=== PATIENT | female | born 1975 | race Caucasian/White ===

== ENCOUNTER 2016-06-27 12:01 | Emergency (ER) | payer OTHER ==
[~2016-06-27] VITALS: Ht 157.4 cm; Wt 64.9 kg
[~2016-06-27 12:01] MED LIST: ELAVIL PO; HYDROCODONE BIT1 T11 PO; VIBRAMYCIN100 MG PO
[2016-06-27] MEDS ORDERED: ASPIRIN325 M2 PO (12:10)
[2016-06-27] MEDS ORDERED: PROZAC20 MG PO (12:10)
[2016-06-27] MEDS ORDERED: BAL B-501 EACH PO (12:11)
[2016-06-27 12:40] LABS: HEMATOCRIT 43.5 % (37.0-47.0); MEAN CELL VOLUME 89.3 fl (81.0-99.0); MEAN CORPUSCULAR HGB 28.7 pg (27.0-31.0); MEAN CORPUSCULAR HGB CONC 32.2 g/dl (33.0-37.0); PLATELET COUNT AUTOMATED 218 10*3/uL (130-400); RED BLOOD COUNT 4.87 10*6/uL (4.10-5.10); RED CELL DISTRI WIDTH 13.3 % (0-14.5); WHITE BLOOD COUNT 9.5 10*3/uL (4.8-10.8)
[2016-06-27 12:54] LABS: ALBUMIN 3.9 gm/dl (3.1-4.5); ALKALINE PHOSPHATASE 98 U/L (45-117); BILIRUBIN, TOTAL 0.7 mg/dl (0.2-1.0); BUN 13 mg/dl (7-24); CARBON DIOXIDE 27 mmol/L (21-32); CHLORIDE 104 mmol/L (98-107); EST GLOM FILT AFRICAN AMERICAN > 60 ml/min; GLUCOSE 109 mg/dL (65-99); POTASSIUM 3.4 mmol/L (3.5-5.1); SGOT/AST 19 IU/L (3-35); SGPT/ALT 21 U/L (12-78); SODIUM 141 mmol/L (136-145); TOTAL PROTEIN 7.5 gm/dL (6.4-8.2)
[2016-06-27 13:02] LABS: LYMPHOCYTE # 0.3 10*3/uL (1.3-4.4); MONOCYTE # 0.2 10*3/uL (0.1-1.0); NEUTROPHILS 95 % (47-73); TOTAL CELLS COUNTED 100 #CELLS
[2016-06-27 13:03] LABS: PLATELET SUFFICIENCY NORMAL (NORMAL)
[2016-06-27] MEDS ORDERED: ZOFRAN ODT4 MG SL (14:05)
[2016-06-27] MEDS ORDERED: LOMOTIL 0.025 M1 TA1 PO (14:05)
== END 2016-06-27 14:31 | disposition home or self-care (01) ==
LOC: ED 12:01
PROVIDERS: Student in an Organized Health Care Education/Training Program
DX: G43.009 Migraine without aura, not intractable, without status migrainosus (principal); R19.7 Diarrhea, unspecified; Z88.0 Allergy status to penicillin; Z88.1 Allergy status to other antibiotic agents; Z88.2 Allergy status to sulfonamides; Z79.82 Long term (current) use of aspirin; Z79.899 Other long term (current) drug therapy

== ENCOUNTER 2018-04-09 23:51 | Emergency (ER) | payer OTHER ==
[~2018-04-09] VITALS: Ht 157.4 cm; Wt 65.8 kg
[~2018-04-09 23:51] MED LIST changes: +ASPIRIN325 M2 PO; +BAL B-501 EACH PO; +LOMOTIL 0.025 M1 TA1 PO; +PROZAC20 MG PO; +ZOFRAN ODT4 MG SL
== END 2018-04-10 02:17 | disposition home or self-care (01) ==
LOC: ED 23:51
DX: G43.909 Migraine, unspecified, not intractable, without status migrainosus (principal); Z88.1 Allergy status to other antibiotic agents; Z88.0 Allergy status to penicillin; Z88.2 Allergy status to sulfonamides; Z79.899 Other long term (current) drug therapy; Z79.82 Long term (current) use of aspirin

== ENCOUNTER → 2020-05-22 | Outpatient (CLI) | payer OTHER | END | disposition home or self-care (01) | LOC: COVID19 13:20 | PROVIDERS: ATTEND Social Worker Clinical | DX: U07.1 COVID-19 (principal) ==

== ENCOUNTER 2022-03-28 06:55 | Emergency (ER) | payer OTHER ==
[2022-03-28 07:33] LABS: HEMATOCRIT 44.2 % (37.0-47.0); MANUAL DIFF REFLEX YES; MEAN CELL VOLUME 89.3 fl (81.0-99.0); MEAN CORPUSCULAR HGB 29.1 pg (27.0-31.0); MEAN CORPUSCULAR HGB CONC 32.6 g/dl (33.0-37.0); MEAN PLATELET VOLUME 9.9 fl (9.6-12.3); PLATELET COUNT AUTOMATED 218 10*3/uL (130-400); RED BLOOD COUNT 4.95 10*6/uL (4.10-5.10); RED CELL DISTRI WIDTH 13.7 % (0-14.5); WHITE BLOOD COUNT 10.6 10*3/uL (4.8-10.8)
[2022-03-28 07:44] LABS: ACT PARTIAL THROMBO TIME 24.7 SECONDS (20.0-32.1)
[2022-03-28 07:48] LABS: ALKALINE PHOSPHATASE 108 U/L (45-117); BUN 17 mg/dl (7-24); CHLORIDE 107 mmol/L (98-107); CREATININE 0.87 mg/dL (0.55-1.02); LIPASE 82 U/L (73-393); POTASSIUM 3.8 mmol/L (3.5-5.1); SGOT/AST 20 IU/L (3-35); SGPT/ALT 22 U/L (12-78); SODIUM 140 mmol/L (136-145); TOTAL PROTEIN 7.4 gm/dL (6.4-8.2)
[2022-03-28 07:51] LABS: TOTAL CELLS COUNTED 100 #CELLS
[2022-03-28 07:52] LABS: OVALOCYTES FEW; PLATELET SUFFICIENCY NORMAL (NORMAL); POLYCHROMASIA SLIGHT
[2022-03-28 08:47] LABS: BILIRUBIN Negative (Negative); BLOOD Negative (Negative); CLARITY Clear (Clear); COLOR Yellow (Yellow); GLUCOSE Negative (Negative); KETONE Trace (Negative); LEUKO ESTERASE 1+ (Negative); NITRITE Negative (Negative); SPECIFIC GRAVITY >= 1.030 (1.001-1.030)
[2022-03-28 09:38] LABS: BACTERIA 1+
[2022-03-28] MEDS ORDERED: COMPAZINE10 M1 PO (10:27)
== END 2022-03-28 10:43 | disposition home or self-care (01) ==
LOC: ED 06:55
PROVIDERS: Family Medicine
DX: B34.9 Viral infection, unspecified (principal); Z20.822 Contact with and (suspected) exposure to COVID-19; R11.2 Nausea with vomiting, unspecified; R19.7 Diarrhea, unspecified; Z88.1 Allergy status to other antibiotic agents; Z88.0 Allergy status to penicillin; Z88.2 Allergy status to sulfonamides; Z88.8 Allergy status to other drugs, medicaments and biological substances; Z79.899 Other long term (current) drug therapy; Z79.82 Long term (current) use of aspirin